=== PATIENT | female | born 1980 | race American Indian/Alaskan Native ===

== ENCOUNTER 2018-11-28 05:20 | Emergency (ER) | payer SELFPAY ==
[2018-11-28 06:48] LABS: Eosinophils # (Auto) 0.2 K/mm3 (0.0-0.4); Monocytes # (Auto) 0.4 K/mm3 (0.0-0.8)
[2018-11-28 07:01] LABS: Alanine Aminotransferase 12 units/L (7-56); Albumin 4.1 g/dL (3.9-5); BUN/Creatinine Ratio 8; Blood Urea Nitrogen 7 mg/dL (7-17); Hemolysis Index 0
[2018-11-28 07:07] LABS: Free T4 (Free Thyroxine) 1.19 ng/dL (0.76-1.46)
[2018-11-28 07:50] LABS: Basophils % (Auto) 0.5 % (0.0-1.8); Hematocrit 30.3 % (30.3-42.9); Hemoglobin 9.3 gm/dl (10.1-14.3); Lymphocytes # (Auto) 2.8 K/mm3 (1.2-5.4); Lymphocytes % (Auto) 32.6 % (13.4-35.0); Mean Corpuscular HGB Conc 31 % (30-34); Platelet Count 358 K/mm3 (140-440); Red Blood Count 4.57 M/mm3 (3.65-5.03); Red Cell Distribution Width 18.8 % (13.2-15.2)
[2018-11-28 08:17] LABS: Mean Corpuscular Volume 66 fl (79-97)
[2018-11-28 08:50] LABS: Amphetamine Screen,Urine PRESUMPTIVE NEGATIVE; Benzodiazepines Screen,Urine PRESUMPTIVE NEGATIVE; Cannabinoid Screen,Urine PRESUMPTIVE NEGATIVE; Cocaine Screen,Urine PRESUMPTIVE NEGATIVE; Methadone Screen,Urine PRESUMPTIVE NEGATIVE; Opiate Screen,Urine PRESUMPTIVE NEGATIVE
[2018-11-28 08:52] LABS: HCG Qualitative,Urine Negative (Negative)
--- NOTE | 2018-11-28 09:12 | XRay Report ---
CHEST 2 VIEWS INDICATION / CLINICAL INFORMATION: Hypertension. Heart racing x 2 years. COMPARISON: None available. FINDINGS: SUPPORT DEVICES: None. HEART / MEDIASTINUM: The heart size and pulmonary vasculature are normal. The aorta is normal in crystal haider. LUNGS / PLEURA: No significant pulmonary or pleural abnormality. No pneumothorax. ADDITIONAL FINDINGS: No significant additional findings. IMPRESSION: No acute findings. Signer Name: Maximiliano Oliver MD Signed: 11/28/2018 9:07 AM Workstation Name: [id number]
--- NOTE | 2018-11-28 10:42 | Cat Scan Report ---
CTA CHEST WITH CONTRAST INDICATION : Palpitations for one day. TECHNIQUE: Axial imaging performed through the chest, with contrast bolus timing set to maximize opa cification of the pulmonary arteries. Sagittal and coronal reformatted images. 3-plane MIP reformatte d images were obtained. All CT scans at this location are performed using CT dose reduction for ALAR A by means of automated exposure control. 100 mL of intravenous contrast administered. COMPARISON: None FINDINGS: Bolus: Contrast bolus timing is adequate. PTE: No filling defect is present to suggest PTE. Mediastinum: Heart and great vessels appear normal. No pathologic mediastinal adenopathy. Lungs: Lungs are clear. Bones: Degenerative changes in the spine with nothing acute. Upper abdomen: Limited imaging of the upper abdomen shows nothing acute. IMPRESSION: Negative for PTE. Clear lungs. Signer Name: Erick Keating Jr, MD Signed: 11/28/2018 10:38 AM Workstation Name: [id number]
--- NOTE | 2018-11-28 11:24 | Emergency Department Report ---
ED Palpitations HPI - General Chief Complaint: Arrhythmia/Palpitations Stated Complaint: DRY MOUTH, TIGHTNESS IN CHEST, TROUBLE SWALLOWING Time Seen by Provider: 11/28/18 07:20 Source: patient Mode of arrival: Ambulatory Limitations: No Limitations - History of Present Illness Complaint: rapid heart beat -: Gradual, hour(s) Context: occured during rest Arrythmia History: other (Anxiety) Associated Symptoms: chest pain, anxiety. denies: shortness of breath, syncope, near-syncope, nausea/vomiting, diaphoresis, cough, parasthesias, feeling of impending doom, muscle cramps - Related Data Previous Rx's Medication Instructions Recorded Last Taken Type Acetaminophen/Codeine [Tylenol 1 tab PO Q6HR #12 tablet 07/18/18 Unknown Rx /Codeine # 3 tab] Cyclobenzaprine [Flexeril] 10 mg PO Q8H PRN #15 tablet 07/18/18 Unknown Rx Ibuprofen [Motrin] 600 mg PO Q8H PRN #20 tablet 07/18/18 Unknown Rx Allergies Allergy/AdvReac Type Severity Reaction Status Date / Time No Known Allergies Allergy Unverified 07/18/18 17:33 ED Review of Systems ROS: Stated complaint: DRY MOUTH, TIGHTNESS IN CHEST, TROUBLE SWALLOWING Other details as noted in HPI Other: GENERAL: No weight change, fatigue, fever, chills, or night sweats SKIN: No changes in skin or hair, no itching, no rashes, no jaundice HEAD: No trauma, headache, or visual changes EYES: No blurriness, tearing, itching, acute visual loss, conjunctival discoloration, or scleral icterus EARS: No hearing loss, tinnitus, vertigo, or earache NOSE: No rhinorrhea, stuffiness, sneezing, itching, or epistaxis MOUTH: No bleeding gums, hoarseness, sore throat, or swelling CARDIAC: Chest pain, palpitations. No new murmur, dyspnea on exertion, ortho pnea, PND, or edema RESPIRATORY: No shortness of breath, wheeze, cough, sputum production, hemoptysi s, pneumonia, asthma, bronchitis, or emphysema GI: No change in appetite, nausea, vomiting, dysphagia, diarrhea, constipation, hematemesis, melena, hematochezia, or abdominal pain URINARY: No frequency, urgency, polyuria, dysuria, hematuria, or incontinence MUSCULOSKELETAL: No muscle weakness, joint stiffness, decrease in range of motion, redness, swelling NEUROLOGIC: No headache, loss of sensation, numbness, tingling, tremors, weakness, paralysis, seizures HEMATOLOGIC: No anemia, easy bruising, bleeding, petechiae, or purpura ENDOCRINE: No hot or cold intolerance, sweating, polyuria, polydipsia or, polyphagia no thyroid problems PSYCHIATRIC: Anxiety. No depression ED Past Medical Hx - Past Medical History Hx Hypertension: Yes - Social History Smoking Status: Current Every Day Smoker - Medications Home Medications: Home Medications Medication Instructions Recorded Confirmed Last Taken Type Acetaminophen/Codeine [Tylenol 1 tab PO Q6HR #12 tablet 07/18/18 Unknown Rx /Codeine # 3 tab] Cyclobenzaprine [Flexeril] 10 mg PO Q8H PRN #15 tablet 07/18/18 Unknown Rx Ibuprofen [Motrin] 600 mg PO Q8H PRN #20 tablet 07/18/18 Unknown Rx ED Physical Exam - General Limitations: No Limitations - Other Other exam information: GENERAL: Patient in no acute distress HEAD: Normocephalic, atraumatic EYES: PERRLA, EOM intact, no scleral icterus, no conjunctival hemorrhage, visual turner and acuity wnl NOSE: No tenderness, discharge, sinus tenderness MOUTH: No erythema, bleeding, exudate HEART: Regular rate and rhythm, no murmur, S1-S2 are auscultated, no edema, pulses are symmetric LUNGS: No respiratory distress. Bilateral breath sounds, No tachypnea, No retractions, No wheezing, rales, rhonchi ABDOMEN: Normal bowel sounds, abdomen soft, no tenderness, no rebound, no guarding, no distention, no masses, no CVA tenderness MUSCULOSKELETAL: Normal joint range of motion, no redness, no swelling, no tenderness NEUROLOGIC: GCS 15, Alert and Oriented x3, Cranial nerves intact, normal sensation, normal strength, normal gait, no cerebellar deficit, NIHSS 0 PSYCHIATRIC: Anxious. No homicidal or suicidal ideation, no depression, no hallucinations SKIN: Skin is warm and dry, no wounds, no rashes ED Course Vital Signs 11/28/18 11/28/18 11/28/18 05:31 06:45 07:00 Temperature 98.4 F 98.7 F Pulse Rate 113 H 91 H 92 H Respiratory 18 17 16 Rate Blood Pressure 170/111 141/96 Blood Pressure 145/103 [Left] O2 Sat by Pulse 100 100 100 Oximetry 11/28/18 11/28/18 11/28/18 07:15 07:30 07:46 Temperature Pulse Rate 89 90 84 Respiratory 18 16 19 Rate Blood Pressure 136/95 129/91 129/91 Blood Pressure [Left] O2 Sat by Pulse 100 100 94 Oximetry 11/28/18 11/28/18 11/28/18 08:09 08:24 08:31 Temperature Pulse Rate Respiratory Rate Blood Pressure 141/87 141/87 141/87 Blood Pressure [Left] O2 Sat by Pulse 86 97 Oximetry 11/28/18 11/28/18 11/28/18 08:52 09:01 09:15 Temperature Pulse Rate Respiratory Rate Blood Pressure 141/87 141/87 141/87 Blood Pressure [Left] O2 Sat by Pulse 81 L 87 80 L Oximetry 11/28/18 11/28/18 11/28/18 09:32 09:48 10:15 Temperature Pulse Rate Respiratory Rate Blood Pressure 141/87 141/87 141/87 Blood Pressure [Left] O2 Sat by Pulse 91 93 Oximetry 11/28/18 11/28/18 11/28/18 10:33 11:01 11:17 Temperature Pulse Rate Respiratory Rate Blood Pressure 141/87 141/87 141/87 Blood Pressure [Left] O2 Sat by Pulse 73 L 100 75 L Oximetry 11/28/18 11/28/18 11/28/18 11:30 11:46 11:49 Temperature 98.7 F Pulse Rate Respiratory Rate Blood Pressure 141/87 141/87 Blood Pressure [Left] O2 Sat by Pulse 100 Oximetry ED Medical Decision Making - Lab Data Result diagrams: 11/28/18 05:58 11/28/18 05:58 Laboratory Results - last 24 hr 11/28/18 11/28/18 11/28/18 05:58 05:58 05:58 WBC 8.6 RBC 4.57 Hgb 9.3 L Hct 30.3 MCV 66 L MCH 20 L MCHC 31 RDW 18.8 H Plt Count 358 Lymph % (Auto) 32.6 [place] % (Auto) 5.0 Eos % (Auto) 3.0 Baso % (Auto) 0.5 Lymph # 2.8 [place] # 0.4 Eos # 0.2 Baso # 0.0 Seg Neutrophils % 60.8 Seg Neutrophils # 5.1 D-Dimer Sodium 139 Potassium 3.5 L Chloride 105.2 Carbon Dioxide 23 Anion Gap 14 BUN 7 Creatinine 0.9 Estimated GFR > 60 BUN/Creatinine Ratio 8 Glucose 106 H Calcium 9.0 Total Bilirubin < 0.20 AST 18 ALT 12 Alkaline Phosphatase 74 Troponin T Total Protein 7.5 Albumin 4.1 Albumin/Globulin Ratio 1.2 TSH 4.450 H Free T4 1.19 Urine HCG, Qual Urine Opiates Screen Urine Methadone Screen Ur Barbiturates Screen Ur Phencyclidine Scrn Ur Amphetamines Screen U Benzodiazepines Scrn Urine Cocaine Screen U Marijuana (THC) Screen Drugs of Abuse Note 11/28/18 11/28/18 11/28/18 07:33 07:33 08:19 WBC RBC Hgb Hct MCV MCH MCHC RDW Plt Count Lymph % (Auto) [place] % (Auto) Eos % (Auto) Baso % (Auto) Lymph # [place] # Eos # Baso # Seg Neutrophils % Seg Neutrophils # D-Dimer 256.70 H Sodium Potassium Chloride Carbon Dioxide Anion Gap BUN Creatinine Estimated GFR BUN/Creatinine Ratio Glucose Calcium Total Bilirubin AST ALT Alkaline Phosphatase Troponin T < 0.010 Total Protein Albumin Albumin/Globulin Ratio TSH Free T4 Urine HCG, Qual Negative Urine Opiates Screen Urine Methadone Screen Ur Barbiturates Screen Ur Phencyclidine Scrn Ur Amphetamines Screen U Benzodiazepines Scrn Urine Cocaine Screen U Marijuana (THC) Screen Drugs of Abuse Note 11/28/18 08:19 WBC RBC Hgb Hct MCV MCH MCHC RDW Plt Count Lymph % (Auto) [place] % (Auto) Eos % (Auto) Baso % (Auto) Lymph # [place] # Eos # Baso # Seg Neutrophils % Seg Neutrophils # D-Dimer Sodium Potassium Chloride Carbon Dioxide Anion Gap BUN Creatinine Estimated GFR BUN/Creatinine Ratio Glucose Calcium Total Bilirubin AST ALT Alkaline Phosphatase Troponin T Total Protein Albumin Albumin/Globulin Ratio TSH Free T4 Urine HCG, Qual Urine Opiates Screen Presumptive negative Urine Methadone Screen Presumptive negative Ur Barbiturates Screen Presumptive negative Ur Phencyclidine Scrn Presumptive negative Ur Amphetamines Screen Presumptive negative U Benzodiazepines Scrn Presumptive negative Urine Cocaine Screen Presumptive negative U Marijuana (THC) Screen Presumptive negative Drugs of Abuse Note Disclamer - EKG Data When compared to previous EKG there are: no significant change - Radiology Data Radiology results: report reviewed - Medical Decision Making Patient comfortable. Reports symptom improvement. Updated with results. Plan discharge with outpatient follow up. Return if any worsening. Critical care attestation.: If time is entered above; I have spent that time in minutes in the direct care of this critically ill patient, excluding procedure time. ED Disposition Clinical Impression: Hypertensive urgency, Palpitations, Anxiety Disposition: - TO HOME OR SELFCARE Is pt being admited?: No Condition: Stable Instructions: Palpitations (ED), Hypertension (ED), Anxiety (ED) Referrals: [facility] [Outside] - 2-3 Days Time of Disposition: 11:18
[2018-11-28 11:48] VITALS: BP 141/87
== END 2018-11-28 11:49 | disposition home or self-care (01) ==
LOC: ED 05:20
DX: I16.0 Hypertensive urgency (principal); I10 Essential (primary) hypertension; R00.2 Palpitations; F41.9 Anxiety disorder, unspecified; F17.200 Nicotine dependence, unspecified, uncomplicated; Z79.899 Other long term (current) drug therapy
CPT/HCPCS: 36415; 71046; 71275; 80053; 80307; 81025; 84439; 84443; 84484; 85025; 85379; 93005; 93010; 99285; Q9967